=== PATIENT | female | born 1960 | race Caucasian/White ===

== ENCOUNTER 2021-05-23 09:50 | Outpatient (CLI) | payer OTHER, SELFPAY ==
--- NOTE | 2021-05-23 09:56 | MM_ITS ---
WS: [id number] BILATERAL SCREENING DIGITAL MAMMOGRAM WITH CAD HISTORY: SCREENING COMPARISON: 01/24/2019 and 01/17/2019 Bilateral CC and MLO views submitted. Computer aided detection analyzed. Breast composition: The breasts are heterogeneously dense, which may obscure small masses. No suspici ous masses, microcalcifications or architectural distortion. Rodlike benign-appearing calcifications are noted within the anterior subareolar region of each breast. No associated soft tissue mass. These calcifications are slowly increasing. MM/[place] [id number] IMPRESSION: BI-RADS: 2-Benign FOLLOW UP: 1 Year Follow-up
== END 2021-05-23 09:51 | disposition home or self-care (01) ==
LOC: RADSHAW 09:54
PROVIDERS: PCP Family Medicine; Visit Provider Family Medicine
DX: Z12.31 Encounter for screening mammogram for malignant neoplasm of breast (principal)
CPT/HCPCS: 77067

== ENCOUNTER 2022-08-19 13:35 | Emergency (ER) | payer OTHER, SELFPAY ==
[2022-08-19 13:41] VITALS: BP 171/79; PULSE 105; RESP 16; TEMP 36.3; O2SAT 99
[2022-08-19 14:35] LABS: Basophils # 0.1 10^3/uL (0.0-0.1); Basophils % 0.6 %; Eosinophils # 0.2 10^3/uL (0.0-0.8); Eosinophils % 2.6 %; Hematocrit 42.4 % (37.0-47.0); Lymphocytes # 2.8 10^3/uL (0.8-4.8); Lymphocytes % 33.8 %; Mean Corpuscular HGB Conc 35.4 g/dL (30.0-36.0); Mean Corpuscular Hemoglobin 31.1 pg (28.0-34.0); Mean Platelet Volume 10.2 fL (7.4-10.4); Monocytes # 0.6 10^3/uL (0.2-0.9); Monocytes % 7.3 %; Neutrophils # 4.53 10^3/uL (1.8-7.7); Neutrophils % 55.5 %; Nucleated Red Blood Cells % 0 %; Platelet Count 176 10^3/cmm (130-400); Red Blood Count 4.82 10^6/uL (4.1-5.3); Red Cell Distribution Width 11.1 % (12.1-15.1); White Blood Count 8.2 10^3/uL (4.0-10.0)
[2022-08-19 15:14] LABS: Alanine Aminotransferase 21 U/L (0-33); Albumin Level 4.8 g/dL (3.5-5.2); Alkaline Phosphatase 80 U/L (35-105); Anion Gap 17.8 (5-19); Aspartate Amino Transferase 18 U/L (0-32); Blood Urea Nitrogen 15 mg/dL (8-23); Calcium 9.6 mg/dL (8.5-10.5); Carbon Dioxide 24 mmol/L (22-29); Chloride 100 mmol/L (98-107); Globulin 2.7 g/dL (1.3-4.6); Glomerular Filtration Rate 84.2 mL/min (90-130); Glucose 228 mg/dL (65-115); Lipase 49 U/L (13-60); Osmolality Calculated 294 mOsm/kg (285-295); Potassium 3.8 mmol/L (3.5-5.1); Sodium 138 mmol/L (136-145); Total Bilirubin 0.9 mg/dL (0.15-1.2); Total Protein 7.5 g/dL (6.6-8.7)
--- NOTE | 2022-08-19 16:45 | ED_ITS ---
HPI - Abdominal Pain General: Chief Complaint: Abdominal Pain Stated Complaint: abd/naval pain Time Seen by Provider: 08/19/22 16:23 Source: patient Mode of arrival: ambulatory Limitations: no limitations History of Present Illness: 62-year-old female states that since this morning she had some abdominal pain right at her navel. States that actually over the last hour her pain is improved and is completely resolved currently states pain was mild it was a 4 out of 10 denies any worsening proving factors denies any vomiting or diarrhea denies any dysuria denies any fevers. Associated Symptoms: Denies chills, dysuria and fever(s) Review of Systems Const: Denies: fever(s), chills, body aches or change in appetite Eyes: Denies: blurry vision or eye discomfort ENMT: Denies: throat pain or dental pain Card: Denies: chest pain Resp: Denies: dyspnea GI: Reports: abdominal pain : Denies: dysuria Musc: Denies: neck pain or back pain Skin/Breast: Denies: rash Neuro: Denies: headache(s) Psych: Denies: depression Aiden/Lymph: Denies: easy bruising All/Imm: Denies: urticaria PFSH ED PFSH: Medical History Diabetes mellitus Hallux rigidus of both feet Plantar wart of both feet Social History Smoking and tobacco status: never smoked Alcohol intake: never Physical Exam Const: COMMON NORMALS: no acute distress, patient oriented x3 and healthy appearing HENMT: COMMON NORMALS: normocephalic and atraumatic HEAD & SCALP: normocephalic and atraumatic Eye: COMMON NORMALS: Equal, round and reactive pupils present and EOMs intact bilaterally PUPIL: Yes Equal, round and reactive pupils present Neck/C-Spine: COMMON NORMALS: full ROM and supple Chest: COMMONS NORMALS: normal inspection of the chest and normal palpation of entire chest wall Resp: COMMON NORMALS: normal respiratory effort, No retractions, No use of accessory muscles and clear to auscultation bilaterally AUSCULTATION: clear to auscultation bilaterally Cardio: COMMON NORMALS: regular rate, regular rhythm and No murmurs present (Cardio) RATE: regular rate RHYTHM: regular rhythm GI: COMMON NORMALS: Normal to inspection, nondistended, normoactive bowel sounds present, Soft to palpation, non-tender and no masses PALPATION: Yes Soft to palpation Extremity: COMMON NORMALS: normal to inspection and full ROM Neuro: COMMON NORMALS: patient oriented x3, moves all extremities and no focal motor deficits Psych: COMMON NORMALS: mental status grossly normal, Normal thought process present and cooperative THOUGHT PROCESS: Normal thought process present Skin: COMMON NORMALS: no rashes or lesions noted and no wounds GENERAL SKIN EXAM: no rashes or lesions noted Course Vital Signs: Vital signs: Vital Signs Temperature 97.4 F L 08/19/22 13:41 Pulse Rate 71 08/19/22 17:00 Respiratory Rate 16 08/19/22 17:00 Blood Pressure 122/55 08/19/22 17:00 Pulse Oximetry 96 08/19/22 17:00 Oxygen Delivery Me thod 08/19/22 13:41 MDM - Abdominal Pain Medical Decision Making Patient presents abdominal pain is since resolved she has had no pain here exam is benign with no tenderness no signs appendicitis blood work and urinalysis is normal she stable for discharge inform if her pain returns she is return to the ER she is to follow-up with her PCP she understands agrees to plan. Lab Data 08/19/22 14:26 08/19/22 14:26 Labs/Radiology: Laboratory Results WBC 8.2 10^3/uL (4.0-10.0) 08/19/22 14: RBC 4.82 10^6/uL (4.1-5.3) 08/19/22 14:26 Hgb 15.0 g/dL (11.5-15.3) 08/19/22 14: Hct 42.4 % (37.0-47.0) 08/19/22 14: MCV 88.0 fl (81-99) 08/19/22 14: MCH 31.1 pg (28.0-34.0) 08/19/22 14: MCHC 35.4 g/dL (30.0-36.0) 08/19/22 14: RDW 11.1 % (12.1-15.1) L 08/19/22 14: Plt Count 176 10^3/cmm (130-400) 08/19/22 14: MPV 10.2 fL (7.4-10.4) 08/19/22 14: Neut % (Auto) 55.5 % 08/19/22 14:26 Lymph % (Auto) 33.8 % 08/19/22 14:26 [place]bour % (Auto) 7.3 % 08/19/22 14:26 Eos % (Auto) 2.6 % 08/19/22 14:26 Baso % (Auto) 0.6 % 08/19/22 14: Neut # (Auto) 4.53 10^3/uL (1.8-7.7) 08/19/22 14: Lymph # (Auto) 2.8 10^3/uL (0.8-4.8) 08/19/22 14: [place] # (Auto) 0.6 10^3/uL (0.2-0.9) 08/19/22 14: Eos # (Auto) 0.2 10^3/uL (0.0-0.8) 08/19/22 14: Baso # (Auto) 0.1 10^3/uL (0.0-0.1) 08/19/22 14: Nucleated RBC % (auto) 0 % 08/19/22 14: Nucleated RBCs # 0.0 /100WBC 08/19/22 14:26 Sodium 138 mmol/L (136-145) 08/19/22 14:26 Potassium 3.8 mmol/L (3.5-5.1) 08/19/22 14:26 Chloride 100 mmol/L (98-107) 08/19/22 14:26 Carbon Dioxide 24 mmol/L (22-29) 08/19/22 14:26 Anion Gap 17.8 (5-19) 08/19/22 14:26 BUN 15 mg/dL (8-23) 08/19/22 14:26 Creatinine 0.7 mg/dL (0.5-0.9) 08/19/22 14:26 GFR Calculation 84.2 mL/min (90-130) L 08/19/22 14:26 Glucose 228 mg/dL (65-115) H 08/19/22 14:26 Calculated Osmolality 294 mOsm/kg (285-295) 08/19/22 14:26 Calcium 9.6 mg/dL (8.5-10.5) 08/19/22 14:26 Total Bilirubin 0.9 mg/dL (0.15-1.2) 08/19/22 14:26 AST 18 U/L (0-32) 08/19/22 14:26 ALT 21 U/L (0-33) 08/19/22 14:26 Alkaline Phosphatase 80 U/L (35-105) 08/19/22 14:26 Total Protein 7.5 g/dL (6.6-8.7) 08/19/22 14:26 Albumin 4.8 g/dL (3.5-5.2) 08/19/22 14:26 Globulin 2.7 g/dL (1.3-4.6) 08/19/22 14:26 Lipase 49 U/L (13-60) 08/19/22 14:26 Urine Color Straw (Yellow) 08/19/22 16:43 Urine Appearance Clear (CLEAR) 08/19/22 16:43 Urine pH 5 (5-7) 08/19/22 16:43 Ur Specific [place] 1.005 (1.005-1.030) 08/19/22 16:43 Urine Protein Neg (Negative) 08/19/22 16:43 Urine Glucose (UA) Norm (Normal) 08/19/22 16:43 Urine Ketones Negative (Negative) 08/19/22 16:43 Urine Blood Neg (Negative) 08/19/22 16:43 Urine Nitrate Negative (Negative) 08/19/22 16:43 Urine Bilirubin Neg (Negative) 08/19/22 16:43 Urine Urobilinogen Norm mg/dL (Negative) 08/19/22 16:43 Ur Leukocyte Esterase Negative (Negative) 08/19/22 16:43 Discharge Plan Discharge Patient Disposition: Home Clinical Impression: Abdominal pain Condition: Stable Prescriptions: New ondansetron 4 mg tablet,disintegrating 4 mg PO Q6H PRN (Reason: nausea and vomiting) Qty: 14 0RF No Action imiquimod 5 % cream in packet 1 applic TOPICAL ONCE lisinopril 10 mg tablet 10 mg PO BID metformin 1,000 mg tablet extended release 24hr 1,000 mg PO BID rosuvastatin [Crestor] 40 mg tablet 40 mg PO ONCE Januvia 50 mg tablet 50 mg PO ONCE metoprolol succinate [Toprol XL] 25 mg tablet extended release 24 hr 25 mg PO BID lansoprazole [Prevacid] 30 mg capsule,delayed release(DR/EC) 30 mg PO ONCE fluorouracil 2 % solution 1 applic TOPICAL BID Qty: 10 0RF Rx Instructions: apply sufficient amount to cover all lesions Discharge Orders: Discharge ED (Routine); Ordered 08/19/22 Ordered By: Mauricio Sal Referrals: Mason Cervantes MD [Primary Care Provider] - 1-3 days Discharge Diet: Advance as tolerated Discharge Activity: Resume usual activity Patient Instructions: Abdominal Pain (ED) Coding Level of Care Code 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
[2022-08-19 17:00] VITALS: BP 122/55; PULSE 71; RESP 16; O2SAT 96
[2022-08-19 17:00] LABS: Add Urine Microscopic? NO; Charge for UA Resulting for Rev
[2022-08-19 17:10] LABS: Bilirubin Urine Neg (Negative); Blood Urine Neg (Negative); Glucose Urine UA Norm (Normal); Ketones Urine Negative (Negative); Leukocyte Esterase Urine Negative (Negative); Nitrate Urine Negative (Negative); Protein Urine Neg (Negative); Specific Gravity, Urine 1.005 (1.005-1.030); Urine Appearance Clear (CLEAR); Urine Color Straw (Yellow); Urobilinogen Urine Norm (Negative); pH Urine 5 (5-7)
[2022-08-19 17:29] VITALS: BP 118/46; PULSE 71; RESP 16; O2SAT 96
== END 2022-08-19 17:32 | disposition home or self-care (01) ==
PROVIDERS: Emergency Provider Emergency Medicine; PCP Family Medicine
DX: R10.9 Unspecified abdominal pain (principal); Z79.84 Long term (current) use of oral hypoglycemic drugs; E11.9 Type 2 diabetes mellitus without complications
CPT/HCPCS: 36415; 80053; 81003; 83690; 85025; 99283

== ENCOUNTER → 2023-04-02 10:35 | Outpatient (BNVA) | payer OTHER, SELFPAY | PROVIDERS: PCP Family Medicine; Visit Provider Family Medicine | DX: E11.9 Type 2 diabetes mellitus without complications (principal); E78.5 Hyperlipidemia, unspecified; I10 Essential (primary) hypertension; Z13.6 Encounter for screening for cardiovascular disorders; E11.65 Type 2 diabetes mellitus with hyperglycemia; E78.00 Pure hypercholesterolemia, unspecified | CPT/HCPCS: 80053; 80061; 82607; 83036 ==

== ENCOUNTER → 2023-08-22 10:05 | Outpatient (BNVA) | payer MEDICARE, SELFPAY | PROVIDERS: PCP Family Medicine; Visit Provider Internal Medicine | DX: E11.65 Type 2 diabetes mellitus with hyperglycemia (principal); E78.00 Pure hypercholesterolemia, unspecified; Z79.84 Long term (current) use of oral hypoglycemic drugs | CPT/HCPCS: 99204 ==

== ENCOUNTER 2023-11-20 15:46 | Outpatient (CLI) | payer MEDICARE, SELFPAY ==
[2023-11-20 16:51] LABS: Estmated Average Glucose 192; Hemoglobin A1C 8.3 % (4.0-6.0)
[2023-11-20 17:13] LABS: Alanine Aminotransferase 18 U/L (0-33); Albumin Level 4.5 g/dL (3.5-5.2); Alkaline Phosphatase 64 U/L (35-105); Anion Gap 14.7 (5-19); Aspartate Amino Transferase 16 U/L (0-32); Blood Urea Nitrogen 17 mg/dL (8-23); Calcium 8.6 mg/dL (8.5-10.5); Carbon Dioxide 27 mmol/L (22-29); Chloride 103 mmol/L (98-107); Chol HDL Ratio 2.29 mg/dL (0.0-4.40); Cholesterol 119 mg/dL (0-200); Globulin 2.3 g/dL (1.3-4.6); Glomerular Filtration Rate 100.3 mL/min (90-130); Glucose 163 mg/dL (65-115); HDL Cholesterol 52 mg/dL (60-100); LDL Cholesterol Calculated 48 mg/dL (50-129); LDL HDL Ratio 0.92 RATIO (0.00-3.22); Osmolality Calculated 297 mOsm/kg (285-295); Potassium 3.7 mmol/L (3.5-5.1); Sodium 141 mmol/L (136-145); Total Bilirubin 0.6 mg/dL (0.15-1.2); Total Protein 6.8 g/dL (6.6-8.7); Triglycerides 94 mg/dL (0-150)
[2023-11-20 17:14] LABS: Creatinine Urine, Random 18 mg/dL (28-217); Microalbumin Random Urine 1 ug/dL (0-20)
[2023-11-20 17:18] LABS: Microalbum Creatinine Ratio Ur 56 mg/dL (0-20)
== END 2023-11-20 15:47 | disposition home or self-care (01) ==
LOC: LAB 15:49
PROVIDERS: Internal Medicine; PCP Family Medicine; Visit Provider Family Medicine
DX: E11.65 Type 2 diabetes mellitus with hyperglycemia (principal); E78.00 Pure hypercholesterolemia, unspecified
CPT/HCPCS: 36415; 80053; 80061; 82044; 83036

== ENCOUNTER → 2023-11-22 07:54 | Outpatient (BNVA) | payer MEDICARE, SELFPAY | PROVIDERS: PCP Family Medicine; Visit Provider Internal Medicine | DX: E11.65 Type 2 diabetes mellitus with hyperglycemia (principal); E78.00 Pure hypercholesterolemia, unspecified; Z79.890 Hormone replacement therapy; Z79.84 Long term (current) use of oral hypoglycemic drugs | CPT/HCPCS: 99214 ==

== ENCOUNTER 2024-04-22 12:14 | Outpatient (CLI) | payer MEDICARE, SELFPAY ==
[2024-04-22 13:21] LABS: Alanine Aminotransferase 20 U/L (0-33); Albumin Level 4.4 g/dL (3.5-5.2); Alkaline Phosphatase 61 U/L (35-105); Anion Gap 14.1 (5-19); Aspartate Amino Transferase 17 U/L (0-32); Blood Urea Nitrogen 19 mg/dL (8-23); Calcium 8.7 mg/dL (8.5-10.5); Carbon Dioxide 27 mmol/L (22-29); Chloride 99 mmol/L (98-107); Chol HDL Ratio 2.39 mg/dL (0.0-4.40); Cholesterol 129 mg/dL (0-200); Estmated Average Glucose 200; Globulin 2.4 g/dL (1.3-4.6); Glucose 199 mg/dL (65-115); HDL Cholesterol 54 mg/dL (60-100); Hemoglobin A1C 8.6 % (4.0-6.0); LDL Cholesterol Calculated 50 mg/dL (50-129); LDL HDL Ratio 0.93 RATIO (0.00-3.22); Osmolality Calculated 290 mOsm/kg (285-295); Potassium 4.1 mmol/L (3.5-5.1); Sodium 136 mmol/L (136-145); Total Protein 6.8 g/dL (6.6-8.7); Triglycerides 125 mg/dL (0-150)
[2024-04-22 13:26] LABS: Creatinine Urine, Random 13 mg/dL (28-217); Microalbumin Random Urine 1 ug/dL (0-20)
[2024-04-22 13:30] LABS: Microalbum Creatinine Ratio Ur 77 mg/dL (0-20)
== END 2024-04-22 12:15 | disposition home or self-care (01) ==
LOC: LAB 12:15
PROVIDERS: PCP Family Medicine; Visit Provider Internal Medicine
DX: E11.65 Type 2 diabetes mellitus with hyperglycemia (principal); E78.00 Pure hypercholesterolemia, unspecified
CPT/HCPCS: 36415; 80053; 80061; 82044; 83036

== ENCOUNTER → 2024-04-24 09:08 | Outpatient (BNVA) | payer MEDICARE, SELFPAY | PROVIDERS: PCP Family Medicine; Referring Provider Family Medicine; Visit Provider Internal Medicine | DX: E11.65 Type 2 diabetes mellitus with hyperglycemia (principal); E78.00 Pure hypercholesterolemia, unspecified; Z79.84 Long term (current) use of oral hypoglycemic drugs | CPT/HCPCS: 99214 ==

== ENCOUNTER 2024-07-21 12:36 | Outpatient (CLI) | payer MEDICARE, SELFPAY ==
[2024-07-21 13:21] LABS: Creatinine Urine, Random 17 mg/dL (28-217); Microalbumin Random Urine 1 ug/dL (0-20)
[2024-07-21 13:23] LABS: Alanine Aminotransferase 16 U/L (0-33); Albumin Level 4.3 g/dL (3.5-5.2); Alkaline Phosphatase 63 U/L (35-105); Anion Gap 13.1 (5-19); Aspartate Amino Transferase 15 U/L (0-32); Blood Urea Nitrogen 13 mg/dL (8-23); Calcium 9.1 mg/dL (8.5-10.5); Carbon Dioxide 26 mmol/L (22-29); Chloride 100 mmol/L (98-107); Chol HDL Ratio 2.19 mg/dL (0.0-4.40); Cholesterol 118 mg/dL (0-200); Globulin 2.6 g/dL (1.3-4.6); Glucose 248 mg/dL (65-115); HDL Cholesterol 54 mg/dL (60-100); LDL Cholesterol Calculated 44 mg/dL (50-129); LDL HDL Ratio 0.81 RATIO (0.00-3.22); Osmolality Calculated 288 mOsm/kg (285-295); Potassium 4.1 mmol/L (3.5-5.1); Sodium 135 mmol/L (136-145); Total Bilirubin 0.9 mg/dL (0.15-1.2); Total Protein 6.9 g/dL (6.6-8.7); Triglycerides 100 mg/dL (0-150)
[2024-07-21 13:24] LABS: Microalbum Creatinine Ratio Ur 59 mg/dL (0-20)
[2024-07-21 13:26] LABS: Estmated Average Glucose 220; Hemoglobin A1C 9.3 % (4.0-6.0)
== END 2024-07-21 12:37 | disposition home or self-care (01) ==
LOC: LAB 12:36
PROVIDERS: PCP Family Medicine; Visit Provider Internal Medicine
DX: E11.65 Type 2 diabetes mellitus with hyperglycemia (principal); E78.00 Pure hypercholesterolemia, unspecified
CPT/HCPCS: 36415; 80053; 80061; 82044; 83036

== ENCOUNTER → 2024-07-25 09:00 | Outpatient (BNVA) | payer MEDICARE, SELFPAY | PROVIDERS: PCP Family Medicine; Visit Provider Internal Medicine | DX: E11.65 Type 2 diabetes mellitus with hyperglycemia (principal); E78.00 Pure hypercholesterolemia, unspecified | CPT/HCPCS: 99214 ==

== ENCOUNTER 2024-08-08 09:13 | Outpatient (CLI) | payer MEDICARE, SELFPAY ==
--- NOTE | 2024-08-08 09:40 | MM_ITS ---
WS: [id number] BILATERAL SCREENING DIGITAL TOMOSYNTHESIS MAMMOGRAM WITH CAD HISTORY: screening COMPARISON: 05/23/2021, 10/20/2011 Bilateral CC and MLO views with tomosynthesis and synthetic mammography submitted. Computer aided det ection analyzed. Breast composition: The breasts are heterogeneously dense, which may obscure small masses. No suspici ous masses, microcalcifications or architectural distortion. Rodlike calcifications noted in the ante rior breast parenchyma. No suspicious masses or distortion. MM/MM scr tomosynthesis [id number] IMPRESSION: BI-RADS: 2 - Benign FOLLOW UP: 1 Year Follow-up
== END 2024-08-08 09:14 | disposition home or self-care (01) ==
LOC: RAD 09:14
PROVIDERS: PCP Family Medicine; Visit Provider Family Medicine
DX: Z12.39 Encounter for other screening for malignant neoplasm of breast (principal); Z12.31 Encounter for screening mammogram for malignant neoplasm of breast; R92.333 Mammographic heterogeneous density, bilateral breasts; R92.1 Mammographic calcification found on diagnostic imaging of breast
CPT/HCPCS: 77063; 77067

== ENCOUNTER 2024-10-20 11:55 | Outpatient (CLI) | payer MEDICARE, SELFPAY ==
[2024-10-20 13:01] LABS: Estmated Average Glucose 183
[2024-10-20 13:06] LABS: Creatinine Urine, Random 18 mg/dL (28-217); Microalbumin Random Urine 1 ug/dL (0-20)
[2024-10-20 13:07] LABS: Microalbum Creatinine Ratio Ur 56 mg/dL (0-20)
[2024-10-20 13:12] LABS: Alanine Aminotransferase 19 U/L (0-33); Albumin Level 4.5 g/dL (3.5-5.2); Alkaline Phosphatase 62 U/L (35-105); Anion Gap 15.2 (5-19); Aspartate Amino Transferase 18 U/L (0-32); Blood Urea Nitrogen 16 mg/dL (8-23); Calcium 9.1 mg/dL (8.5-10.5); Carbon Dioxide 26 mmol/L (22-29); Chloride 102 mmol/L (98-107); Chol HDL Ratio 2.25 mg/dL (0.0-4.40); Cholesterol 133 mg/dL (0-200); Globulin 2.7 g/dL (1.3-4.6); Glomerular Filtration Rate 123.4 mL/min (90-130); Glucose 172 mg/dL (65-115); HDL Cholesterol 59 mg/dL (60-100); LDL Cholesterol Calculated 45 mg/dL (50-129); LDL HDL Ratio 0.76 RATIO (0.00-3.22); Osmolality Calculated 293 mOsm/kg (285-295); Potassium 4.2 mmol/L (3.5-5.1); Sodium 139 mmol/L (136-145); Total Bilirubin 0.6 mg/dL (0.15-1.2); Total Protein 7.2 g/dL (6.6-8.7); Triglycerides 145 mg/dL (0-150)
== END 2024-10-20 11:56 | disposition home or self-care (01) ==
LOC: LAB 11:56
PROVIDERS: PCP Family Medicine; Visit Provider Internal Medicine
DX: E11.65 Type 2 diabetes mellitus with hyperglycemia (principal); E78.00 Pure hypercholesterolemia, unspecified
CPT/HCPCS: 36415; 80053; 80061; 82044; 83036

== ENCOUNTER → 2024-10-21 09:00 | Outpatient (BNVA) | payer MEDICARE, SELFPAY | PROVIDERS: PCP Family Medicine; Visit Provider Internal Medicine | DX: E11.65 Type 2 diabetes mellitus with hyperglycemia (principal); E78.00 Pure hypercholesterolemia, unspecified | CPT/HCPCS: 99214 ==

== ENCOUNTER 2025-01-13 09:33 | Outpatient (CLI) | payer MEDICARE, SELFPAY ==
[2025-01-13 10:57] LABS: Estmated Average Glucose 180; Hemoglobin A1C 7.9 % (4.0-6.0)
[2025-01-13 11:01] LABS: Creatinine Urine, Random 15 mg/dL (28-217); Microalbumin Random Urine 1 ug/dL (0-20)
[2025-01-13 11:02] LABS: Alanine Aminotransferase 15 U/L (0-33); Albumin Level 4.4 g/dL (3.5-5.2); Alkaline Phosphatase 55 U/L (35-105); Anion Gap 17.3 (5-19); Aspartate Amino Transferase 16 U/L (0-32); Blood Urea Nitrogen 20 mg/dL (8-23); Calcium 9.3 mg/dL (8.5-10.5); Carbon Dioxide 25 mmol/L (22-29); Chloride 99 mmol/L (98-107); Cholesterol 139 mg/dL (0-200); Globulin 2.7 g/dL (1.3-4.6); Glucose 153 mg/dL (65-115); HDL Cholesterol 58 mg/dL (60-100); LDL Cholesterol Calculated 68 mg/dL (50-129); LDL HDL Ratio 1.17 RATIO (0.00-3.22); Osmolality Calculated 290 mOsm/kg (285-295); Potassium 4.3 mmol/L (3.5-5.1); Sodium 137 mmol/L (136-145); Total Bilirubin 0.7 mg/dL (0.15-1.2); Total Protein 7.1 g/dL (6.6-8.7); Triglycerides 66 mg/dL (0-150)
[2025-01-13 11:05] LABS: Microalbum Creatinine Ratio Ur 67 mg/dL (0-20)
== END 2025-01-13 09:34 | disposition home or self-care (01) ==
PROVIDERS: PCP Family Medicine; Visit Provider Internal Medicine
DX: E11.65 Type 2 diabetes mellitus with hyperglycemia (principal); E78.00 Pure hypercholesterolemia, unspecified
CPT/HCPCS: 36415; 80053; 80061; 82044; 83036

== ENCOUNTER → 2025-01-20 08:33 | Outpatient (BNVA) | payer MEDICARE, SELFPAY | PROVIDERS: PCP Family Medicine; Visit Provider Internal Medicine | DX: E11.65 Type 2 diabetes mellitus with hyperglycemia (principal); E78.00 Pure hypercholesterolemia, unspecified | CPT/HCPCS: 99214 ==

== ENCOUNTER 2025-03-10 06:53 | Outpatient (CLI) | payer MEDICARE, SELFPAY ==
[2025-03-10] MEDS: iohexol 350 mg/mL 500 mL Btl (per mL) IV (07:43)
[2025-03-10] MEDS: iohexol 350 mg/mL 500 mL Btl (per mL) PO (07:44)
--- NOTE | 2025-03-10 08:00 | CTR_ITS ---
PROCEDURE INFORMATION: Exam: CT Abdomen And Pelvis With Contrast Exam date and time: 03/10/2025 7:41 AM Age: 64 years old Clinical indication: Abdominal pain; Localized; Lower; Prior surgery; Surgery date: 6+ months; Surgery type: C-sction x 3, gb, hernia; Additional info: Left lower quadrant pain TECHNIQUE: Imaging protocol: Computed tomography of the abdomen and pelvis with contrast. Radiation optimization: All CT scans at this facility use at least one of these dose optimization techniques: automated exposure control; mA and/or kV adjustment per patient size (includes targeted exams where dose is matched to clinical indication); or iterative reconstruction. Contrast material: [id number]; Contrast volume: 100 ml; Contrast route: INTRAVENOUS (IV); COMPARISON: 1. US pelv w/transvag [id number] 09/11/2023 11:[address] abdomen pelvis wo/w [id number] 02/28/2009 1:32 AM RADIATION DOSE METRICS: Total DLP (mGy-cm): 296.13 FINDINGS: Lungs: Unchanged 4 mm right middle lobe nodule. New 7 mm subpleural nodule medially in the left lower lobe. Unchanged subpleural 3 mm nodules are noted in both lower lobes. Esophagus: Oral contrast is noted in the distal esophagus. Diaphragm: Unchanged 3 cm hiatal hernia. Liver: The liver is normal. No mass. Gallbladder and biliary ducts: Post cholecystectomy. There is a mild, expected degree of intrahepatic and common bile duct dilation. Pancreas: The pancreas is normal. No mass. Spleen: 2.9 x 1.8 cm cystic and solid anteriorly in the spleen. A small amount of marginal calcification involves the mass. Finding represents the location of a previously seen 6 cm complex cystic structure. Adrenal glands: The adrenal glands are normal. Kidneys and ureters: No hydronephrosis or nephrolithiasis. Stomach and bowel: Bowel caliber is within normal limits. A loop of small bowel in the anterior pelvis demonstrates areas of concentric and eccentric mural thickening. Oral contrast traverses the segment of bowel. No pericolonic or perienteric inflammatory changes. Appendix: Normal appendix. Intraperitoneal space: No significant peritoneal free fluid. No free peritoneal air. Vasculature: Aortic caliber is normal. Lymph nodes: No lymph node enlargement. Urinary bladder: No focal wall thickening of the urinary bladder. Reproductive: Uterus is unremarkable. No suspicious adnexal lesion seen. Bones/joints: No acute osseous abnormality. Soft tissues: Right paraumbilical abdominal wall defects measure up to 14 mm. 6.3 cm focus of omental herniates through the right para umbilical abdominal wall defect. CT/CT abdomen pelvis w con* [id number] IMPRESSION: 1. Loop of small bowel in the upper pelvis demonstrating mural thickening that could represent normal contraction or mural thickening from focal inflammation or neoplasm. Further evaluation for abnormality in this location can include follow-up CT enterography. 2. Marked interval decrease in size previously noted complex splenic cyst. 3. 7 mm left lower lobe nodule. For patients at low risk (minimal or absent history of smoking and of other known risk factors), recommend CT Chest at 6-12 months, then consider CT Chest at 18-24 months. For patients at high risk (history of smoking or of other known risk factors), recommend CT Chest at 6-12 months, then CT Chest at 18-24 months. (Reference: Dinesh). 4. Fat containing right paraumbilical abdominal wall hernia. REFERENCES: Dinesh Cooper, et al. Guidelines for Management of Incidental Pulmonary Nodules Detected on CT Images: From the Fleischner Society 2017. Radiology. 2017;284(1):228-243.
== END 2025-03-10 06:54 | disposition home or self-care (01) ==
LOC: RAD 06:53
PROVIDERS: PCP Family Medicine; Visit Provider Family Medicine
DX: K42.9 Umbilical hernia without obstruction or gangrene (principal); D73.4 Cyst of spleen; R91.1 Solitary pulmonary nodule
CPT/HCPCS: 74177

== ENCOUNTER 2025-04-20 11:41 | Outpatient (CLI) | payer MEDICARE, SELFPAY ==
[2025-04-20 12:27] LABS: Estmated Average Glucose 194; Hemoglobin A1C 8.4 % (4.0-6.0)
[2025-04-20 12:38] LABS: Alanine Aminotransferase 20 U/L (0-33); Albumin Level 4.7 g/dL (3.5-5.2); Alkaline Phosphatase 60 U/L (35-105); Anion Gap 13.9 (5-19); Aspartate Amino Transferase 21 U/L (0-32); Blood Urea Nitrogen 12 mg/dL (8-23); Calcium 9.2 mg/dL (8.5-10.5); Carbon Dioxide 26 mmol/L (22-29); Chloride 100 mmol/L (98-107); Cholesterol 136 mg/dL (0-200); Globulin 2.9 g/dL (1.3-4.6); Glucose 207 mg/dL (65-115); HDL Cholesterol 65 mg/dL (60-100); Osmolality Calculated 288 mOsm/kg (285-295); Potassium 3.9 mmol/L (3.5-5.1); Sodium 136 mmol/L (136-145); Total Protein 7.6 g/dL (6.6-8.7); Triglycerides 102 mg/dL (0-150)
[2025-04-20 12:46] LABS: Creatinine Urine, Random 20 mg/dL (28-217); Microalbum Creatinine Ratio Ur 50 mg/dL (0-20)
== END 2025-04-20 11:42 | disposition home or self-care (01) ==
LOC: LAB 11:43
PROVIDERS: PCP Family Medicine; Visit Provider Internal Medicine
DX: E11.65 Type 2 diabetes mellitus with hyperglycemia (principal)
CPT/HCPCS: 36415; 80053; 80061; 82044; 83036

== ENCOUNTER → 2025-04-21 09:50 | Outpatient (BNVA) | payer MEDICARE, SELFPAY | PROVIDERS: PCP Family Medicine; Visit Provider Internal Medicine | DX: E11.65 Type 2 diabetes mellitus with hyperglycemia (principal); E78.00 Pure hypercholesterolemia, unspecified | CPT/HCPCS: 99214 ==